=== PATIENT | male | born 1950 | race Caucasian/White ===

== ENCOUNTER → 2016-10-07 | Outpatient (CLI) | payer OTHER ==
[~2016-10-07] MED LIST: AMLO5TAB2 PO; ASPI-558 PO; ATOR40TA64 PO; BUDE10.22 INH; DICL18CA PO; DUTA1CPM PO; FURO-153 PO; GLIM4TAB31 PO; HYDR-310 PO; IOHEXOL 300 MG/ML 100ml INJECTION ONE; METO50TA5 PO; MIRA50TA PO; NITR100C PO; NORMAL SALINE 100 ML ONE; POTA20TA PO; RAMI10CA24 PO; SALINE FLUSH 10ml SYRINGE ONE; SAXA5TAB PO; TIOT18CA6 IH; VARE1TAB22 PO
[2016-10-07 13:12] LABS: BASOPHILS % (AUTO) 0.2 % (0-2); EOSINOPHILS # (AUTO) 0.1 T/MM3 (0-0.5); EOSINOPHILS % (AUTO) 0.8 % (0-4); HCT - HEMATOCRIT 39.8 % (41-53); HGB - HEMOGLOBIN 13.1 GM/DL (13.5-17.5); IMMATURE GRANULOCYTE # (AUTO) 0.04 T/MM3 (0.00-0.03); IMMATURE GRANULOCYTE % (AUTO) 0.3 % (0.0-0.5); LYMPHOCYTES % (AUTO) 8.9 % (23-45); MEAN CORPUSCULAR HGB 27.6 UUG (26-34); MEAN CORPUSCULAR HGB CONC(MCHC 32.9 GM/DL (31-37); MEAN CORPUSCULAR VOLUME 83.8 UM3 (80-100); MEAN PLATELET VOLUME 9.2 UM3 (9.4-12.4); MONOCYTES # (AUTO) 0.6 T/MM3 (0-0.8); MONOCYTES % (AUTO) 4.8 % (0-9.0); NEUTROPHILS #(AUTO)-ABSOLUTE 9.8 T/MM3 (1.8-7.7); RED BLOOD COUNT 4.75 M/MM3 (4.50-5.90); WBC - WHITE BLOOD COUNT 11.6 T/MM3 (4.5-11.0)
[2016-10-07 13:58] LABS: ALBUMIN 3.7 G/DL (3.5-5.0); ALBUMIN/GLOBULIN RATIO 0.9 RATIO (1.1-2.2); ALKALINE PHOSPHATASE 987 U/L (38-126); ALT (SGPT) 390 U/L (21-72); ANION GAP 14 MEQ/L (5-15); AST (SGOT) 293 U/L (17-59); BUN/CREATININE RATIO 12 RATIO (6-26); CALCIUM 9.6 MG/DL (8.4-10.2); CHLORIDE 103 MEQ/L (98-107); CO2 - CARBON DIOXIDE 24 MEQ/L (22-30); CREATININE 1.5 MG/DL (0.8-1.5); GLOMERULAR FILTRATION RATE 47; GLUCOSE 281 MG/DL (75-110); LIPASE 1265 U/L (23-300); POTASSIUM 4.2 MEQ/L (3.6-5); SODIUM 141 MEQ/L (134-144); TOTAL PROTEIN 7.8 G/DL (6.3-8.2)
--- NOTE | 2016-10-07 14:42 | DI ---
Indication: ITS.REASON: K85.90 Acute pancreatitis without necrosis or infection PROCEDURE: CT ABDOMEN W/CONTRAST: Encounter: Initial Comparison: CT abdomen and pelvis dated February 16, [address] angiogram of the aorta dated August 12, 2016 Technique: Axial CT images were performed through the abdomen after the administration of intravenous contrast. Coronal and sagittal two-dimensional reformats. Automated Exposure Control and Iterative Reconstruction dose reducing techniques were utilized. Contrast: Omnipaque 300 99 mL Findings: The lung bases show scattered calcified granulomas. The liver is shows a probable cyst. There is some new mild intrahepatic bile duct dilatation and slight prominence of the extrahepatic common duct. Gallbladder is now surgically absent with some mild inflammatory change in the gallbladder fossa consistent with the recent surgery. No bile duct dilatation. The spleen and adrenal glands are stable with adenomatous hyperplasia of the adrenal glands bilaterally. Kidneys are stable. Calcifications in the area of the pancreatic head and uncinate process. The largest measures 9 mm in size on axial image #39. No definable or measurable pancreatic mass. Fat-containing ventral hernia. The visualized loops of small and large bowel within the abdomen are within normal limits. Bone windows show degenerative changes in the spine. Impression: 1. Recent cholecystectomy with mild intra and extrahepatic bile duct dilatation. This is slightly more than anticipated at this early stage status postcholecystectomy. Recommend correlation with liver function testing and ERCP if these are abnormal. 2. Prominent pancreatic head calcifications could relate to prior episodes of pancreatitis or less likely a pancreatic neoplasm. ERCP with brushings may be helpful for further evaluation. 3. No significant peripancreatic inflammatory change to suggest an acute pancreatitis. .
== END ==
LOC: IMA 12:54
PROVIDERS: ATTEND Family Medicine
DX: K86.89 Other specified diseases of pancreas (principal); R93.3 Abnormal findings on diagnostic imaging of other parts of digestive tract; Z90.49 Acquired absence of other specified parts of digestive tract; K85.90 Acute pancreatitis without necrosis or infection, unspecified
CPT/HCPCS: 36415; 74160; 80053; 82150; 83690; 85025; J7050; Q9967

== ENCOUNTER → 2016-10-14 | Outpatient (CLI) | payer OTHER ==
[~2016-10-14] MED LIST changes: -IOHEXOL 300 MG/ML 100ml INJECTION ONE; -NORMAL SALINE 100 ML ONE; -SALINE FLUSH 10ml SYRINGE ONE
[2016-10-14 16:02] LABS: BASOPHILS % (AUTO) 0.4 % (0-2); EOSINOPHILS # (AUTO) 0.3 T/MM3 (0-0.5); EOSINOPHILS % (AUTO) 3.8 % (0-4); HCT - HEMATOCRIT 39.9 % (41-53); HGB - HEMOGLOBIN 12.9 GM/DL (13.5-17.5); IMMATURE GRANULOCYTE # (AUTO) 0.04 T/MM3 (0.00-0.03); IMMATURE GRANULOCYTE % (AUTO) 0.4 % (0.0-0.5); LYMPHOCYTES # (AUTO) 1.4 T/MM3 (1-4.8); LYMPHOCYTES % (AUTO) 15.9 % (23-45); MEAN CORPUSCULAR HGB 27.7 UUG (26-34); MEAN CORPUSCULAR HGB CONC(MCHC 32.3 GM/DL (31-37); MEAN CORPUSCULAR VOLUME 85.8 UM3 (80-100); MEAN PLATELET VOLUME 9.4 UM3 (9.4-12.4); MONOCYTES # (AUTO) 0.5 T/MM3 (0-0.8); MONOCYTES % (AUTO) 5.5 % (0-9.0); NEUTROPHILS #(AUTO)-ABSOLUTE 6.7 T/MM3 (1.8-7.7); RED BLOOD COUNT 4.65 M/MM3 (4.50-5.90)
[2016-10-14 16:11] LABS: ALBUMIN 3.5 G/DL (3.5-5.0); ALBUMIN/GLOBULIN RATIO 0.9 RATIO (1.1-2.2); ALKALINE PHOSPHATASE 295 U/L (38-126); ALT (SGPT) 55 U/L (21-72); ANION GAP 11 MEQ/L (5-15); AST (SGOT) 22 U/L (17-59); BUN/CREATININE RATIO 21 RATIO (6-26); CALCIUM 9.2 MG/DL (8.4-10.2); CHLORIDE 102 MEQ/L (98-107); CO2 - CARBON DIOXIDE 28 MEQ/L (22-30); CREATININE 1.2 MG/DL (0.8-1.5); GLOMERULAR FILTRATION RATE 61; GLUCOSE 359 MG/DL (75-110); LIPASE 466 U/L (23-300); POTASSIUM 4.6 MEQ/L (3.6-5); SODIUM 141 MEQ/L (134-144); TOTAL PROTEIN 7.2 G/DL (6.3-8.2)
== END ==
LOC: LAB 15:42
PROVIDERS: ATTEND Family Medicine
DX: K85.90 Acute pancreatitis without necrosis or infection, unspecified (principal)
CPT/HCPCS: 36415; 80053; 82150; 83690; 85025